=== PATIENT | female | born 1985 | race Caucasian/White ===

== ENCOUNTER → 2016-07-12 | Outpatient (CLI) | payer BC ==
[~2016-07-12] MED LIST: CONTRAST GIVEN MC PRN; IOHEXOL 300 MG/ML 50 ML VIAL. IJ ONE
--- NOTE | 2016-07-12 11:09 | KCIC ---
PROCEDURE Transvaginal pelvic ultrasound. HISTORY Pre HSG. Infertility. TECHNIQUE Real-time ultrasound imaging of the pelvis using transvaginal window is performed. COMPARISON Hysterosalpingogram, later same day. FINDINGS The uterus measures 7 x 2.9 x 3.8 cm. No focal myometrial abnormality. The endometrial stripe is normal measuring 1 millimeter. There is a sliver of fluid in the endometrial canal. A 6 millimeter nabothian cyst is seen. The right ovary measures 2.8 x 2 x 2.3 cm. There is a dominant follicle that measures 1.1 cm. The left ovary measures 3.1 x 1.7 x 1.9 cm. No evidence of adnexal mass. No cul-de-sac free fluid. IMPRESSION 1. Nabothian cyst. 2. Small dominant right ovarian follicle. 3. No cul-de-sac free fluid. Electronically signed by: Tera Leung MD (Jul 12, 2016 11:08:12)
--- NOTE | 2016-07-12 11:48 | KCIC ---
PROCEDURE Hysterosalpingogram. HISTORY Inability to become . TECHNIQUE The procedure was discussed with the patient. All questions were answered. Written consent to proceed was obtained. Timeout procedure was performed. Speculum was inserted. Cervix was identified and cleaned with Betadine. Hysterosalpingogram catheter was positioned and balloon inflated. Speculum was removed. Approximately 10 milliliters of Omnipaque 300 was injected intermittently under direct fluoroscopic visualization. Balloon was then deflated and catheter removed. Patient tolerated the procedure well. Fluoroscopy time is 41 seconds. Image count is 9. FINDINGS On the initial images there is a small mobile gas bubble within the endometrial canal. Otherwise, there is no filling defect. Both fallopian tubes are promptly filled with contrast extravasating into the pelvis bilaterally. Neither fallopian tube is dilated. Patient's uterus is slightly tilted. IMPRESSION Normal hysterosalpingogram with both fallopian tubes patent. Electronically signed by: Henri Alvarenga MD (Jul 12, 2016 11:47:01)
== END | disposition home or self-care (01) ==
LOC: KCIC 07:45
PROVIDERS: ATTEND Obstetrics & Gynecology
DX: N88.8 Other specified noninflammatory disorders of cervix uteri (principal)
CPT/HCPCS: 74400; 76830; Q9967